=== PATIENT | female | born 1945 | race Caucasian/White ===

== ENCOUNTER 2022-02-28 09:18 | Outpatient (CLI) | payer MEDICARE | END 2022-02-28 09:19 | disposition home or self-care (01) | LOC: CSHLAB 09:18 | PROVIDERS: ATTEND Surgery | DX: Z20.822 Contact with and (suspected) exposure to COVID-19 (principal) | CPT/HCPCS: 87811 ==

== ENCOUNTER 2022-03-03 06:25 | Day surgery (SDC) | payer MEDICARE ==
[2022-02-27 13:41] VITALS: BMI 22.8
[2022-03-03] MEDS ORDERED: Bupivacaine PF 0.5% 30 ML VIAL ONE (06:37)
[2022-03-03] MEDS ORDERED: EPINEPHrine 1 MG/ML AMP ONE (06:37)
[2022-03-03] MEDS ORDERED: Fentanyl 100 MCG/2 ML VIAL ONE (06:48)
[2022-03-03] MEDS ORDERED: Ondansetron PF 4 MG/2 ML Vial ONE (06:48)
[2022-03-03] MEDS ORDERED: Dexamethasone 4 mg/ml Vial ONE (06:48)
[2022-03-03] MEDS ORDERED: PROPOFOL 20 ML ONE (06:48)
[2022-03-03] MEDS ORDERED: Lidocaine 2% PF 5 ML VIAL ONE (06:49)
[2022-03-03] MEDS ORDERED: CEFAZOLIN 2 GM VIAL ONE (06:54)
[2022-03-03] MEDS ORDERED: Acetaminophen 325 MG TAB PO PRN (08:14)
[2022-03-03] MEDS ORDERED: HYDROcodone/Acetaminophen 5/325 mg Tablet PO PRN (08:14)
== END 2022-03-03 08:55 | disposition home or self-care (01) ==
LOC: CSHSDC 06:25
PROVIDERS: ATTEND Surgery
PROC: 02HV33Z Insertion of Infusion Device into Superior Vena Cava, Percutaneous Approach (ICD-10-PCS; principal; 2022-03-03)
PROC: B518ZZA Fluoroscopy of Superior Vena Cava, Guidance (ICD-10-PCS; 2022-03-03)
DX: C34.31 Malignant neoplasm of lower lobe, right bronchus or lung (principal); I10 Essential (primary) hypertension; E11.9 Type 2 diabetes mellitus without complications; Z86.718 Personal history of other venous thrombosis and embolism; Z79.01 Long term (current) use of anticoagulants; Z79.4 Long term (current) use of insulin; Z79.899 Other long term (current) drug therapy; Z20.822 Contact with and (suspected) exposure to COVID-19; Z87.891 Personal history of nicotine dependence; Z90.710 Acquired absence of both cervix and uterus
CPT/HCPCS: 36561; C1788; J0171; J0690; J1100; J1642; J2001; J2405; J2704; J3010; S0020